=== PATIENT | female | born 1950 | race Two or more races ===

== ENCOUNTER 2017-10-27 18:50 | Emergency (ER) | payer OTHER ==
[~2017-10-27] VITALS: Ht 160 cm; Wt 90.7 kg
[2017-10-27] MEDS ORDERED: ADVAIR HFA 230/12 GM (19:01)
[2017-10-27] MEDS ORDERED: PROAIR RESPICL90 MCG (19:01)
[2017-10-27] MEDS ORDERED: LIPITOR20 MG (19:02)
[2017-10-27] MEDS ORDERED: PRECOSE25 MG (19:02)
[2017-10-27] MEDS ORDERED: ASA81 MG (19:02)
[2017-10-27] MEDS ORDERED: URECHOLINE10 M1 (19:03)
[2017-10-27] MEDS ORDERED: BUMEX (19:03)
[2017-10-27] MEDS ORDERED: ALPHAGAN P5 ML (19:03)
[2017-10-27] MEDS ORDERED: HYDROCORTISONE5 MG (19:04)
[2017-10-27] MEDS ORDERED: FLONASE16 GM (19:04)
[2017-10-27] MEDS ORDERED: FAMVIR (19:04)
[2017-10-27] MEDS ORDERED: PROTONIX40 MG (19:05)
[2017-10-27] MEDS ORDERED: LATANOPROST2.5 ML (19:05)
[2017-10-27] MEDS ORDERED: METFORMIN HCL500 MG (19:05)
[2017-10-27] MEDS ORDERED: SPIRIVA (19:06)
[2017-10-27] MEDS ORDERED: POTASSIUM (19:06)
[2017-10-27] MEDS ORDERED: PROLIA (19:06)
[2017-10-27] MEDS ORDERED: SPIRONOLACTONE1 EACH (19:07)
[2017-10-27] MEDS ORDERED: VERAPAMIL ER180 MG (19:07)
== END 2017-10-27 20:49 | disposition home or self-care (01) ==
LOC: ER 18:50
DX: S81.812A Laceration without foreign body, left lower leg, initial encounter (principal); W26.8XXA Contact with other sharp object(s), not elsewhere classified, initial encounter; Y93.89 Activity, other specified; Y92.832 Beach as the place of occurrence of the external cause; Y99.8 Other external cause status